=== PATIENT | male | born 1995 | race Caucasian/White ===

== ENCOUNTER 2023-08-26 20:08 | Emergency (ER) | payer SELFPAY ==
[2023-08-26 20:12] VITALS: BMI 28.8
[2023-08-26] MEDS ORDERED: TETRACAINE 0.5% OPHTH SOLN 2 ML BOTTLE ONE (20:39)
[2023-08-26] MEDS ORDERED: FLUORESCEIN NA 1 EA STRIP ONE (20:39)
[2023-08-26] MEDS ORDERED: ACETAMINOPHEN 325 MG TABLET (FP) ONE (22:23)
[2023-08-26] MEDS: ACETAMINOPHEN 325 MG TABLET (FP) PO ONE (22:24)
[2023-08-26 23:47] VITALS: BP 145/78; PULSE 70; TEMP 98
[2023-08-26 23:48] VITALS: RESP 20
== END 2023-08-26 23:16 | disposition short-term general hospital (02) ==
LOC: JERFT 20:08
DX: H57.11 Ocular pain, right eye (principal); H53.8 Other visual disturbances; S05.91XA Unspecified injury of right eye and orbit, initial encounter; W21.02XA Struck by soccer ball, initial encounter; Y93.66 Activity, soccer
CPT/HCPCS: 76512; 99285-25